=== PATIENT | female | born 1950 | race Native Hawaiian/Other Pacific Islander ===

== ENCOUNTER 2018-12-18 10:00 | Outpatient (CLI) | payer OTHER | END 2018-12-18 21:01 | disposition home or self-care (01) | LOC: RAD 10:00 | DX: R07.81 Pleurodynia (principal); J40 Bronchitis, not specified as acute or chronic ==

== ENCOUNTER 2019-01-25 15:51 | Outpatient (CLI) | payer OTHER | END 2019-01-25 19:39 | disposition home or self-care (01) | LOC: RAD 15:51 | DX: M25.562 Pain in left knee (principal) ==

== ENCOUNTER 2019-04-24 21:57 | Emergency (ER) | payer OTHER ==
[~2019-04-24] VITALS: Ht 157.5 cm; Wt 86.2 kg
[2019-04-24 22:10] VITALS: TEMP 98.8
[2019-04-24 23:57] VITALS: BP 136/72
== END 2019-04-24 23:41 | disposition home or self-care (01) ==
LOC: ED 21:57
DX: S52.591A Other fractures of lower end of right radius, initial encounter for closed fracture (principal); W18.39XA Other fall on same level, initial encounter; Y92.89 Other specified places as the place of occurrence of the external cause
CPT/HCPCS: 96372; 99282; 99283; J1885

== ENCOUNTER 2019-05-10 16:26 | Outpatient (CLI) | payer OTHER ==
[2019-05-10 17:35] LABS: POTASSIUM 4.4 mmol/L (3.6-5.2); SODIUM 137 mmol/L (136-145)
== END 2019-05-10 19:43 | disposition home or self-care (01) ==
LOC: LABW 16:26
PROVIDERS: Physician Assistant
DX: R51 Headache (principal); R53.1 Weakness; R29.6 Repeated falls
CPT/HCPCS: 36415; 80053; 82607; 83735; 85651

== ENCOUNTER 2019-05-27 13:58 | Outpatient (CLI) | payer OTHER | END 2019-05-27 22:43 | disposition home or self-care (01) | LOC: MRI 13:58 | DX: R51 Headache (principal); R53.1 Weakness; R29.6 Repeated falls | CPT/HCPCS: A9576 ==

== ENCOUNTER 2020-01-26 11:45 | Outpatient (CLI) | payer OTHER | END 2020-01-26 19:07 | disposition home or self-care (01) | LOC: LAB 11:45 | DX: Z11.59 Encounter for screening for other viral diseases (principal); J06.9 Acute upper respiratory infection, unspecified | CPT/HCPCS: 87635; G2023; U0003 ==

== ENCOUNTER 2020-08-09 09:58 | Emergency (ER) | payer OTHER ==
[~2020-08-09] VITALS: Ht 157.5 cm; Wt 89.4 kg
[2020-08-09 11:30] LABS: PLATELET COUNT 263 K/uL (152-353)
[2020-08-09 11:33] LABS: POTASSIUM 3.7 mmol/L (3.6-5.2); SODIUM 139 mmol/L (136-145)
[2020-08-09 12:10] VITALS: BP 138/55; TEMP 98
== END 2020-08-09 12:13 | disposition home or self-care (01) ==
LOC: ED 09:58
PROVIDERS: Family Medicine
DX: R00.1 Bradycardia, unspecified (principal); T44.7X5A Adverse effect of beta-adrenoreceptor antagonists, initial encounter; Y92.89 Other specified places as the place of occurrence of the external cause
CPT/HCPCS: 36415; 80053; 82550; 82553; 83605; 83880; 84484; 85027; 93005; 99283

== ENCOUNTER 2020-12-26 08:48 | Outpatient (CLI) | payer OTHER | END 2020-12-26 19:28 | disposition home or self-care (01) | LOC: LAB 08:48 | PROVIDERS: ATTEND Internal Medicine | DX: R50.9 Fever, unspecified (principal); Z11.52 Encounter for screening for COVID-19 | CPT/HCPCS: 87635; G2023; U0003 ==

== ENCOUNTER 2021-01-16 08:21 | Outpatient (CLI) | payer OTHER ==
[2021-01-16 09:50] LABS: POTASSIUM 3.6 mmol/L (3.6-5.2)
[2021-01-16 10:09] LABS: PLATELET COUNT 284 K/uL (152-353)
== END 2021-01-16 20:07 | disposition home or self-care (01) ==
LOC: US 08:21
PROVIDERS: ATTEND Internal Medicine
DX: I10 Essential (primary) hypertension (principal); M79.604 Pain in right leg
CPT/HCPCS: 36415; 80053; 80061; 81000; 83735; 84439; 84443; 85027

== ENCOUNTER 2021-01-23 11:49 | Emergency (ER) | payer OTHER ==
[~2021-01-23] VITALS: Ht 157.5 cm; Wt 97.5 kg
[2021-01-23 11:58] VITALS: TEMP 97.5
[2021-01-23 12:43] LABS: PLATELET COUNT 336 K/uL (152-353)
[2021-01-23 13:03] LABS: POTASSIUM 3.5 mmol/L (3.6-5.2)
[2021-01-23 13:30] VITALS: BP 136/74
== END 2021-01-23 13:30 | disposition home or self-care (01) ==
LOC: ED 11:49
PROVIDERS: Emergency Medicine Emergency Medical Services
DX: J20.9 Acute bronchitis, unspecified (principal); R06.02 Shortness of breath
CPT/HCPCS: 80053; 83880; 85027; 99283

== ENCOUNTER 2021-01-30 14:07 | Outpatient (CLI) | payer OTHER | END 2021-01-30 19:29 | disposition home or self-care (01) | LOC: LAB 14:07 | PROVIDERS: ATTEND Internal Medicine | DX: Z20.822 Contact with and (suspected) exposure to COVID-19 (principal) | CPT/HCPCS: 87635; G2023; U0003 ==

== ENCOUNTER 2021-02-15 08:58 | Outpatient (CLI) | payer OTHER | END 2021-02-15 18:53 | disposition home or self-care (01) | LOC: CT 08:58 | PROVIDERS: ATTEND Internal Medicine | DX: R10.32 Left lower quadrant pain (principal) ==

== ENCOUNTER 2021-03-26 11:36 | Outpatient (CLI) | payer OTHER | END 2021-03-26 21:02 | disposition home or self-care (01) | LOC: RAD 11:36 | PROVIDERS: ATTEND Internal Medicine | DX: J40 Bronchitis, not specified as acute or chronic (principal) ==

== ENCOUNTER 2021-04-02 11:46 | Outpatient (CLI) | payer OTHER | END 2021-04-02 19:21 | disposition home or self-care (01) | LOC: CT 11:46 | PROVIDERS: ATTEND Internal Medicine | DX: R06.02 Shortness of breath (principal); D68.8 Other specified coagulation defects | CPT/HCPCS: 36415; 82565; 84520; 85610; Q9963 ==

== ENCOUNTER 2021-04-15 06:07 | Emergency (ER) | payer OTHER ==
[~2021-04-15] VITALS: Ht 157.5 cm; Wt 98.0 kg
[2021-04-15] MEDS ORDERED: POT CL MICRO20 MEQ PO (06:22)
[2021-04-15] MEDS ORDERED: OMEPRAZOLE40 MG PO (06:23)
[2021-04-15] MEDS ORDERED: PREDNISONE10 MG PO (06:23)
[2021-04-15] MEDS ORDERED: TORSEMIDE100 MG PO (06:23)
[2021-04-15] MEDS ORDERED: RYBELSUS7 MG PO (06:24)
[2021-04-15] MEDS ORDERED: ROPINIROLE1 MG PO (06:24)
[2021-04-15] MEDS ORDERED: MONTELUKAST SOD10 MG PO (06:24)
[2021-04-15] MEDS ORDERED: METO100T37 PO (06:25)
[2021-04-15 06:34] LABS: PLATELET COUNT 224 K/uL (152-353)
[2021-04-15 06:42] LABS: POTASSIUM 3.2 mmol/L (3.6-5.2)
[2021-04-15 06:48] LABS: PARTIAL THROMBOPLASTIN TIME 48.6 SECONDS (24.5-33.6)
[2021-04-15 08:06] VITALS: BP 125/68; TEMP 98.3
== END 2021-04-15 08:07 | disposition home or self-care (01) ==
LOC: ED 06:07
PROVIDERS: Emergency Medicine
DX: R06.01 Orthopnea (principal); I50.9 Heart failure, unspecified; E11.65 Type 2 diabetes mellitus with hyperglycemia; Z79.84 Long term (current) use of oral hypoglycemic drugs; E87.6 Hypokalemia
CPT/HCPCS: 36415; 80053; 82550; 83880; 84484; 85027; 85379; 85610; 85730; 93005; 96374; 99284; J1940

== ENCOUNTER 2021-08-17 09:55 | Outpatient (CLI) | payer OTHER ==
[~2021-08-17 09:55] MED LIST: METO100T37 PO; MONTELUKAST SOD10 MG PO; OMEPRAZOLE40 MG PO; POT CL MICRO20 MEQ PO; PREDNISONE10 MG PO; ROPINIROLE1 MG PO; RYBELSUS7 MG PO; TORSEMIDE100 MG PO
[2021-08-17 11:19] LABS: PLATELET COUNT 308 K/uL (152-353)
[2021-08-17 11:29] LABS: POTASSIUM 3.4 mmol/L (3.6-5.2)
== END 2021-08-17 20:28 | disposition home or self-care (01) ==
LOC: RAD 09:55
PROVIDERS: ATTEND Internal Medicine
DX: E11.9 Type 2 diabetes mellitus without complications (principal); R92.8 Other abnormal and inconclusive findings on diagnostic imaging of breast; M25.512 Pain in left shoulder; M54.2 Cervicalgia
CPT/HCPCS: 36415; 80053; 80061; 81000; 83036; 84439; 84443; 85027

== ENCOUNTER → 2022-01-29 | Outpatient (CLI) | payer OTHER | LOC: RAD 01-22 09:00 | PROVIDERS: ATTEND Internal Medicine | DX: Z13.820 Encounter for screening for osteoporosis (principal); Z78.0 Asymptomatic menopausal state ==

== ENCOUNTER 2022-05-15 11:19 | Outpatient (CLI) | payer OTHER ==
[2022-05-15 11:49] LABS: PLATELET COUNT 297 K/uL (152-353)
== END 2022-05-15 19:00 | disposition home or self-care (01) ==
LOC: LABW 11:19
PROVIDERS: ATTEND Internal Medicine
DX: E86.0 Dehydration (principal); R79.1 Abnormal coagulation profile; Z79.899 Other long term (current) drug therapy
CPT/HCPCS: 36415; 80053; 83735; 84443; 85027; 85610

== ENCOUNTER 2022-07-09 11:27 | Outpatient (CLI) | payer OTHER | END 2022-07-09 19:27 | disposition home or self-care (01) | LOC: LABW 11:27 | PROVIDERS: ATTEND Internal Medicine | DX: D68.8 Other specified coagulation defects (principal); R06.09 Other forms of dyspnea | CPT/HCPCS: 36415; 85610 ==

== ENCOUNTER 2022-07-23 11:39 | Outpatient (CLI) | payer OTHER | END 2022-07-23 19:20 | disposition home or self-care (01) | LOC: RAD 11:39 | PROVIDERS: ATTEND Internal Medicine | DX: M54.2 Cervicalgia (principal); M25.512 Pain in left shoulder ==

== ENCOUNTER 2022-10-16 11:42 | Outpatient (CLI) | payer OTHER | END 2022-10-16 18:54 | disposition home or self-care (01) | LOC: LABW 11:42 → US 11:42 | PROVIDERS: ATTEND Internal Medicine | DX: M25.561 Pain in right knee (principal) ==